=== PATIENT | female | born 1955 | race Caucasian/White ===

== ENCOUNTER → 2017-06-30 | Outpatient (CLI) | payer OTHER ==
[2017-06-30] MEDS: GADOBUTROL 7.5 MMOL/7.5 ML VIAL IV (11:47)
== END | disposition home or self-care (01) ==
LOC: MRI 10:50
DX: H93.11 Tinnitus, right ear (principal)
CPT/HCPCS: 70553; A9585

== ENCOUNTER → 2020-06-06 | Outpatient (CLI) | payer OTHER ==
--- NOTE | 2020-06-06 14:37 | KCIC ---
EXAMINATION: MRI LEFT SHOULDER WITHOUT IV CONTRAST CLINICAL HISTORY: Bilateral shoulder pain, two recent injuries involving arms. TECHNIQUE: Multiplanar multisequential images obtained through the shoulder without intravenous contr ast. COMPARISON: None FINDINGS: TENDONS: - Supraspinatus: Small full-thickness tear in the middle third of the tendon near the footplate. Ques tionable low-grade articular sided fraying near the myotendinous junction. Moderate tendinosis. - Infraspinatus: Mild tendinosis without discrete tear. - Subscapularis: Low-grade interstitial tearing in the superior fibers and moderate to marked tendino sis. - Teres Minor: Intact. - Biceps Tendon: The long head biceps tendon is intact and appropriately located. MUSCLES: Muscle bulk and signal intensity are within normal limits. LABRUM: Posterior labral degeneration without discrete tear. GLENOHUMERAL JOINT: - Joint Fluid: No significant joint effusion or synovitis. - Cartilage: No full-thickness chondral defect. ACROMIOCLAVICULAR JOINT: Mild hypertrophic degenerative changes. BONES/MARROW: No evidence of acute fracture or suspicious marrow replacing process. OTHER: Mild thickening of the subacromial/subdeltoid bursa. IMPRESSION: Small full-thickness tear and low-grade fraying in the supraspinatus tendon. Low-grade interstitial t earing in the subscapularis tendon. Moderate left rotator cuff tendinosis. Electronically signed by: Armando Lainez DO (06/06/2020 2:35 PM) [id number]
--- NOTE | 2020-06-06 14:40 | KCIC ---
EXAMINATION: MRI RIGHT SHOULDER WITHOUT IV CONTRAST CLINICAL HISTORY: Bilateral shoulder pain, two recent injuries involving arms. TECHNIQUE: Multiplanar multisequential images obtained through the shoulder without intravenous contr ast. COMPARISON: None FINDINGS: TENDONS: - Supraspinatus: Small low-grade partial thickness articular sided tear at the anterior footplate. Qu estionable low-grade articular sided fraying near the myotendinous junction. Marked tendinosis. - Infraspinatus: Moderate tendinosis without discrete tear. - Subscapularis: Small full-thickness tear in the inferior fibers and moderate to marked tendinosis. - Teres Minor: Intact. - Biceps Tendon: Partial-thickness tearing at the level of the intertubercular groove and intra-artic ular portion of the tendon with mild tenosynovitis. MUSCLES: Muscle bulk and signal intensity are within normal limits. LABRUM: Circumferential labral degeneration without discrete tear. GLENOHUMERAL JOINT: - Joint Fluid: No significant joint effusion or synovitis. - Cartilage: No full-thickness chondral defect. ACROMIOCLAVICULAR JOINT: Moderate hypertrophic degenerative changes. BONES/MARROW: No evidence of acute fracture or suspicious marrow replacing process. OTHER: Mild fluid in the subacromial/subdeltoid bursa. IMPRESSION: Small full-thickness subscapularis tendon tear and low-grade partial thickness tearing/fraying in the supraspinatus tendon with moderate to marked right rotator cuff tendinosis. Partial-thickness tearing and tenosynovitis long head biceps tendon. Electronically signed by: Armando Lainez DO (06/06/2020 2:37 PM) [id number]
== END ==
LOC: KCIC MRI 12:21
PROVIDERS: ATTEND Physician Assistant Medical
DX: M19.012 Primary osteoarthritis, left shoulder (principal); M19.011 Primary osteoarthritis, right shoulder; M75.102 Unspecified rotator cuff tear or rupture of left shoulder, not specified as traumatic
CPT/HCPCS: 73221

== ENCOUNTER 2020-11-14 09:22 | Day surgery (SDC) | payer OTHER ==
[~2020-11-14] VITALS: Ht 167.6 cm; Wt 73.0 kg
[~2020-11-14 09:22] MED LIST: DEXAMETHASONE SOD PHOS 4 MG/ML VIAL ONE; IV RINGERS,LACTATED 1000ML 1,000 ML IV SCH; LIDOCAINE 2% PF 5 ML VIAL. ONE; ONDANSETRON PF 4 MG/2 ML VIAL. ONE; PROCHLORPERAZINE 10 MG/2 ML VIAL. IVP PRN; PROPOFOL 10 MG/ML (20ML) VIAL. IV ONE; ROCURONIUM 50 MG/5 ML VIAL. ONE; ceFAZolin SODIUM IV Push 1 GM VIAL. IVP ONE; ceFAZolin SODIUM IV Push 1 GM VIAL. IVP PRN; fentaNYL PF VIAL 100 MCG/2 ML VIAL IVP PRN; fentaNYL PF VIAL 100 MCG/2 ML VIAL ONE
[2020-11-14] MEDS ORDERED: BUPR150T8 PO (09:33)
[2020-11-14] MEDS ORDERED: ESTR-85 PO (09:33)
[2020-11-14 09:45] VITALS: BP 158/80
[2020-11-14] MEDS ORDERED: BUPIVACAINE MPF 0.5% 30 ML VIAL. ONE (10:16)
[2020-11-14] MEDS ORDERED: MIDAZOLAM HCL/PF 2 MG/2 ML VIAL. ONE (10:17)
[2020-11-14] MEDS ORDERED: ceFAZolin SODIUM IV Push 1 GM VIAL. IVP ONE (10:41)
[2020-11-14] MEDS ORDERED: SEVOFLURANE > 120 MINUTES. IH ONE (11:21)
[2020-11-14] MEDS ORDERED: NEOSTIGMINE METHYLSULFATE 5 MG/5 ML SYRINGE. ONE (11:21)
[2020-11-14] MEDS ORDERED: ePHEDrine PF IN SALINE 50 MG/10 ML SYRINGE. IV ONE (11:22)
[2020-11-14] MEDS ORDERED: GLYCOPYRROLATE 1 MG/5 ML VIAL. ONE (11:22)
[2020-11-14] MEDS ORDERED: fentaNYL PF VIAL 100 MCG/2 ML VIAL ONE (12:53)
[2020-11-14] MEDS ORDERED: MORPHINE SULFATE 2 MG/ML INJ. ONE (12:53)
[2020-11-14] MEDS ORDERED: OXYC1TAB19 PO (12:54)
[2020-11-14] MEDS: fentaNYL PF VIAL 100 MCG/2 ML VIAL IVP PRN ×2 (12:57→13:11)
[2020-11-14] MEDS: MORPHINE SULFATE 2 MG/ML INJ. IVP PRN ×2 (12:57→13:11)
--- NOTE | 2020-11-14 12:57 | DISCH ---
DISCHARGE INSTRUCTIONS Condition on Discharge Condition on Discharge: Stable Activity After Discharge Activity Instructions for Disc: Other, see below (May do fine motor use such as eating writing typing with the left elbow at the side only no lifting the elbow or arm away from the body) Exercise Instruction after Dis: Exercise per therapy (No lifting the arm away from the body on its own may stretch with the other arm, may hang the arm down to the side while walking or a pendulum exercise) Weight Bearing Status after Di: Non weight bearing Diet after Discharge Diet after Discharge: Regular Wound Incision Care Wound/Incision Care: Ice to area for comfort, Change dressing (Remove dressing in 2 days may then shower no soaking until sutures removed) Community/Resources/Services Services at Discharge: PT EVALUATE & TREAT (Passive range of motion of left shoulder only x4 weeks postop) Contacting the after DC Call your doctor for: Concerns you may have Follow-Up Follow up with: Dr. Arenas or Meg 7 to 10 days FRENCH ARENAS MD Nov 14, 2020 12:57
[2020-11-14] MEDS ORDERED: oxyCODONE/APAP 7.5/325 1 TAB TABLET PO ONE (13:15)
[2020-11-14] MEDS ORDERED: HYDROmorphone 2 MG/ML VIAL ONE (13:35)
[2020-11-14] MEDS: HYDROmorphone 2 MG/ML VIAL IVP PRN ×4 (13:37→14:09)
[2020-11-14 14:25] VITALS: BP 154/85
--- NOTE | 2020-11-14 16:06 | PDOC4 ---
Operative Note Operative Note Date of surgery: 11/14/2020 Preoperative diagnosis: Left shoulder rotator cuff repair Postoperative diagnosis: Same plus biceps anchor and superior labral compromise and partial-thickness subscapularis tear Operative procedure: Left shoulder arthroscopy arthroscopic rotator cuff repair and biceps tenodesis as well as debridement of superior labrum and partial- thickness subscapularis tear Surgeon: Deepa Assist: Vikas Emanuel first aid trainer Anesthesia: General plus scalene block Estimated blood loss: 10 cc Complications: None Operative indications: Please see my orthopedic clinic note for detailed operative indications and note that we had reviewed the rationale for rotator cuff repair based on her ongoing pain weakness and MRI findings of a full- thickness rotator cuff tear and suspected biceps compromise. I had gone over with her the risks of potential infection nonhealing nerve or blood vessel damage continued pain stiffness medical or other anesthetic complications among others and the fact that I would address any additional pathology as appropriate and we had talked through the recovery process and expected restrictions from the rotator cuff repair. All her questions were answered she agrees to proceed with surgical evaluation and treatment Operative text: Patient was identified procedure verified patient placed in the supine position on the operating table. After adequate amounts of general anesthesia plus a pre-existing scalene block were obtained she was placed in the decubitus position left side up all bony promises were well-padded and the shoulder was examined under anesthesia found to have full range of motion normal stability. The left shoulder was then prepped and draped in standard sterile fashion and placed in the arthroscopic arm lino with a total of 10 pounds of traction. After timeout was performed patient procedure identified and verified a standard posterior portal was established an anterior portal established using spinal needle localization and the shoulder joint was systematically examined. Biceps anchor was found to be compromised and the biceps tagged and tenotomized and the superior labrum debrided. Partial-thickness fraying was noted of the subscapularis insertion which was trimmed back to stable tissue and repair was not necessary. Anterior labrum was likewise debrided back to stable tissue. Glenohumeral joint cartilage was noted to be well preserved. There was a large tear of the supraspinatus insertion and normal bare area of the humerus. Full- thickness tear of the supraspinatus was noted from the joint space and confirmed when the subacromial space was entered and bursa was cleared to allow adequate visualization. A total of 2 Felicita double loaded juggernaut all suture anchors were placed along the medial row and the 8 suture limbs were placed in a simple fashion and secured laterally with a ShotSpotter knotless lateral row anchor with excellent watertight repair noted in all degrees of internal/external rotation. The bicipital groove was unroofed and biceps was tenodesed with a ShotSpotter small bolt fixation after placing the cannulated drill bit in the bicipital groove and biceps tendon was tensioned appropriately with excellent fixation noted. The joint was drained of arthroscopic fluid portals closed with nylon suture sterile dressings were applied patient was returned to recovery room stable condition having tolerated procedure well. Vikas muñoz assist assisted in patient positioning prepping draping equipment positioning closure dressings and immobilizer application FRENCH FERNANDO MD Nov 14, 2020 16:06
== END 2020-11-14 15:15 | disposition home or self-care (01) ==
LOC: SURG 09:22
PROVIDERS: ATTEND Orthopaedic Surgery
DX: S46.812A Strain of other muscles, fascia and tendons at shoulder and upper arm level, left arm, initial encounter (principal); M75.102 Unspecified rotator cuff tear or rupture of left shoulder, not specified as traumatic; K21.9 Gastro-esophageal reflux disease without esophagitis; M19.90 Unspecified osteoarthritis, unspecified site; F41.9 Anxiety disorder, unspecified; Z87.891 Personal history of nicotine dependence; Z79.899 Other long term (current) drug therapy; Z98.890 Other specified postprocedural states; X58.XXXA Exposure to other specified factors, initial encounter; Y93.89 Activity, other specified; Y92.89 Other specified places as the place of occurrence of the external cause; Y99.8 Other external cause status
CPT/HCPCS: 29822; 29827; 64415; A4213; A4565; A4930; C1713; J0690; J0780; J1100; J1170; J2250; J2270; J2405; J2704; J2710; J3010; J3490